=== PATIENT | male | born 1950 | race African-American/Black ===

== ENCOUNTER 2017-06-08 04:05 | Inpatient (IN) | payer OTHER ==
[~2017-06-08] VITALS: Ht 177.8 cm; Wt 100.0 kg
[~2017-06-08 04:05] MED LIST: ATORVASTATIN CA20 M1 PO; HYDROCHLOROTHIA25 M1 PO; METOPROLOL SUCC50 M2 PO; NORVASC5 M1 PO; OMEPRAZOLE20 M2 PO; PERCOCET 10-321 EACH PO
--- NOTE | 2017-06-08 09:45 | Admission Core Measures ---
Acute Coronary Syndrome (CM) ACS Core Measures Acute Coronary Syndrome Diagnosis No Congestive Heart Failure (NEW) CHF Core Measures Congestive Heart Failure Diagnosis No Cerebrovascular Accident (NEW) CVA Core Measures CVA/TIA Diagnosis No Venous Thromboembolism VTE Core Janak (View Protocol) VTE Risk Factors Surgery No Mechanical VTE Prophylaxis d/t N/A MechProphylax Ordered No VTE Pharm Prophylaxis d/t NA PharmProphylax ordered Problem List As ranked by this Provider includes Assessment & Plan 1. Primary osteoarthritis of right knee HOME MEDS Home Med List Amlodipine Besylate (Norvasc) 5 MG TABLET 1 TAB PO DAILY BP (Reported) Atorvastatin Calcium 20 MG TABLET 1 TAB PO DAILY CHOLESTEROL (Reported) Hydrochlorothiazide 25 MG TABLET 1 TAB PO DAILY BP (Reported) Metoprolol Succinate 50 MG TAB.ER.24H 1 TAB PO DAILY HEART/BP (Reported) Omeprazole 20 MG CAPSULE.DR 1 CAP PO DAILY GI (Reported) Oxycodone HCl/Acetaminophen (Percocet 10-325 MG Tablet) 10 MG-325 MG TABLET 1 TAB PO 4 TIMES/DAY PAIN (Reported)
--- NOTE | 2017-06-08 10:59 | Surg Short-stay <48hrs Dis Sum ---
Visit Information Visit Dates Admission Date: 06/08/17 Discharge Date: 06/10/17 Surgical Short Stay DC Summary Admission Diagnosis: Right knee pain related to right knee primary osteoarthritis Final Diagnosis: Same, status post right total knee replacement Procedure(s): Right total knee replacement Summary/Significant Findings: Patient was admitted to the hospital for an elective total joint replacement. Procedure was tolerated well and patient was transferred to a general surgical floor. Diet was advanced and tolerated. Physical therapy performed evaluation and treatment. At time of hospital discharge, vital signs were stable, neurovascular status was intact, and pain was controlled with the use of oral pain medications. Condition at Discharge: Stable Discharge Disposition: home health services Discharge instructions provided to patient/family: Yes Post discharge follow-up plan: Follow up with Dr. Osorio in 6 weeks from date of surgery. Please call his office to schedule/confirm this appointment.
--- NOTE | 2017-06-08 11:18 | Patient Discharge Instructions ---
Discharge Instructions General Discharge Information You were seen/treated for: Right knee pain secondary to osteoarthritis You had these procedures: Right total knee replacement Watch for these problems: Increasing pain despite the use of pain medication Increasing redness, warmth or swelling Drainage of any type from incision Inability to bear weight on operative leg Persistent nausea and vomiting Fever greater than 101.5 degrees Other wound care: Please keep wound clean and dry. No ointments or lotions of any type on or near incision. Your dressing will be changed by your nurse on the second day after your surgery. Daily dry dressing changes are recommended each day thereafter. You may shower 48hr after surgery. Do not soak your wound- no tub baths or swimming. Special Instructions: Aspirin: You are taking this medication to help prevent blood clot formation. Please take with food to protect your stomach lining. Take as directed. Constipation: Pain medication can cause constipation. It is recommended that you take Colace and miralax daily. You may discontinue this medication if you develop loose stool or diarrhea. If you wish to continue this medication, it is available over the counter. If you are unable to move your bowels or pass gas after several days, please contact your doctor. Diet Continue normal diet: Yes Activity Activity Limited to: Weight bear as tolerated Additional ACTIVITY Info: Use assistive devices as needed Acute Coronary Syndrome Inclusion Criteria At DC or during hospital stay patient has or had the following: ACS DIAGNOSIS No Discharge Core Measures Meds if any: Prescribed or Continued at Discharge Meds if any: NOT Prescribed or Continued at Discharge Congestive Heart Failure Inclusion Criteria At DC or during hospital stay patient has or had the following: CHF DIAGNOSIS No Discharge Core Measures Meds if any: Prescribed or Continued at Discharge Meds if any: NOT Prescribed or Continued at Discharge Cerebrovascular accident Inclusion Criteria At DC or during hospital stay patient has or had the following: CVA/TIA Diagnosis No Discharge Core Measures Meds if any: Prescribed or Continued at Discharge Meds if any: NOT Prescribed or Continued at Discharge Venous thromboembolism Inclusion Criteria VTE Diagnosis No VTE Type NONE VTE Confirmed by (Test) NONE Discharge Core Measures - Per Current guidelines, there needs to be overlap - treatment for the first 5 days of Warfarin therapy. - If discharged on Warfarin prior to 5 days of - overlap therapy, the patient will need to be - assessed for post discharge needs including - *Post discharge parental anticoagulation - *Warfarin and/or parental anticoagulation education - *Follow up date to check INR post discharge At least 5 days overlap therapy as Inpatient No Meds if any: Prescribed or Continued at Discharge Note: Overlap Therapy is Warfarin and Anticoagulant Meds if any: NOT Prescribed or Continued at Discharge
[2017-06-08] MEDS ORDERED: COLACE100 M1 PO (11:22)
[2017-06-08] MEDS ORDERED: ASPIRIN EC325 M2 PO (11:22)
[2017-06-08] MEDS ORDERED: MS CONTIN15 M3 PO (11:22)
[2017-06-08] MEDS ORDERED: DILAUDID2 M1 PO (11:22)
[2017-06-08] MEDS ORDERED: MIRALAX17 G1 PO (11:22)
--- NOTE | 2017-06-08 14:46 | Operative Report ---
Operative/Inv Procedure Report Surgery Date: 06/08/17 Name of Procedure: 1. Right total knee replacement 2. Left knee cortisone injection Pre-Operative Diagnosis: Primary bilateral knee DJD Post-Operative Diagnosis: Same Estimated Blood Loss: 50ml to 100ml Surgeon/Skin Peeling Machine Operator: Devon WAGNER,Edy Mcgarry Anesthesia: block Operative/Procedure Note Note: Description of Procedure: The patient was taken to the operating room and positively identified. After induction of spinal anesthesia and administration of appropriate pre-operative antibiotics, the patient was positioned supine on the operating room table and all bony prominences were well padded. The left knee was prepped sterilely and injected with a mixture of 2 mL of Depo- Medrol and 6 mL of Marcaine. A Band-Aid Was Placed over the Injection Site. Attention Was Then Turned to the Right Lower Extremity. A well-padded pneumatic tourniquet was placed on the right upper thigh. After performing a surgical timeout, the right lower extremity was prepped and draped in the usual sterile fashion. After exsanguination with Esmarch the tourniquet was inflated to 250mm of mercury. A standard medial parapatellar approach was made to the knee. This was carried down through skin and subcutaneous tissue to the level of the fascia. Meticulous hemostasis was maintained with Bovie electrocautery. The extensor mechanism and patellar retinaculum were opened sharply and the patella was everted. The infrapatellar fat was resected in order to improve exposure. Osteophytes were trimmed from the patella and femoral condyles and the patella was re-everted and tucked laterally. A medial release was performed and the cruciate ligaments were resected. The tibia was then subluxed anteriorly. Utilizing the appropriate extra-medullary guide, the proximal tibia was trimmed perpendicular to the long axis of the tibial shaft. Attention was then turned to the femur. After opening the medullary canal, the distal femoral cut was made in 6 degrees of valgus utilizing the appropriate intra-medullary guide. The extension gap was checked and found to be appropriate. The femur was then sized and the remainder of the femoral cuts were made with a size 6 4-in-1 femoral cutting guide. The flexion gap was checked and found to be symmetric and appropriate. The knee was then trialed with a size 6 femoral component, a size 6 tibial component and a size 11 mm polyethylene insert. The patella was trimmed to accept an A 38 patella. This yielded excellent range of motion, stability and patellar tracking. All trial components were removed and the knee was copiously irrigated with sterile saline. All components were cemented into place with Adilene Simplex cement. All the components were of the [employer] knee system of the above stated sizes. The knee was again irrigated after cementation. The extensor mechanism and patellar retinaculum were repaired using interrupted #1 vicryl suture. The skin was re-approximated with 2-0 vicryl and closed with merlene. A sterile dressing was applied, the tourniquet was deflated, the patient was awakened and taken to the recovery room in satisfactory condition.
--- NOTE | 2017-06-08 15:11 | PN- Orthopedic ---
Subjective Subjective: POC feeling ok, no cp/sob. no n/v. no oob yet. hungry, awating po intake. no pain Objective Vital Signs and I&Os see emr Physical Exam: gen- nad card- s1s2 pulm- ctab abd- soft nt ext- rle dressed in haydee, cdi, ice pack in place, onq pump in place, +dp bl, calves soft nt bl, alps on. Assessment/Plan Assessment/Plan A- POD0 sp R TKR, stable, awaiting oob and po intake. P- wbat, pt, oob asa 325mg bid, alps prn pain meds home meds reg diet as tolerated onq pump dc planning will dw attending Core Measures Venous Thromboembolism VTE Risk Factors Surgery No Mechanical VTE Prophylaxis d/t N/A MechProphylax Ordered No VTE Pharm Prophylaxis d/t NA PharmProphylax ordered
[2017-06-08 18:00] VITALS: BP 150/80
[2017-06-08 21:42] VITALS: BP 146/76
[2017-06-09 06:08] VITALS: BP 158/86
[2017-06-09 09:04] LABS: ABSOLUTE BASOPHIL COUNT 0 /CUMM (0.0-0.2); ABSOLUTE EOSINOPHIL COUNT 0 /CUMM (0.0-0.7); ABSOLUTE GRANULOCYTE CT 13.8 /CUMM (1.4-6.5); ABSOLUTE LYMPH COUNT 0.9 /CUMM (1.2-3.4); ABSOLUTE MONOCYTE COUNT 0.9 /CUMM (0.10-0.60); BASOPHIL % 0 % (0.0-2.0); EOSINOPHIL % 0.1 % (0-5); HEMATOCRIT 34.4 % (42-52); MEAN CORPUSCULAR HGB CONC 33.1 G/DL (33.0-37.0); MEAN CORPUSCULAR VOLUME 84.4 FL (80.0-94.0); MEAN PLATELET VOLUME 9.5 FL (7.4-10.4); PLATELET COUNT 214 /CUMM (130-400); RBC DISTRIBUTION WIDTH 13.8 % (11.5-14.5); RED BLOOD CELL CT 4.08 /CUMM (4.70-6.10); WHITE BLOOD CELL COUNT 15.6 /CUMM (4.8-10.8)
--- NOTE | 2017-06-09 09:24 | PN- Orthopedic ---
Subjective Subjective: "I want to go home today". Reports pain controlled. Tolerating diet. No nausea. Denies dizziness. No shortness of breath. No chest pains. Not yet out of bed with PT today. Voiding well. He states he has 7 stairs to accomplish at home. Objective Vital Signs and I&Os Vital Signs Date Time Temp Pulse Resp B/P B/P Pulse O2 O2 Flow FiO2 Mean Ox Delivery Rate 06/10 607 97.9 90 20 158/86 99 Room Air 06/08 214 97.9 78 20 146/76 97 Room Air 06/08 1940 Room Air Room Air 06/08 1800 97.9 79 16 150/80 98 Room Air Room Air Intake & Output 06/09 1600 06/09 0800 06/09 0000 06/08 1600 06/08 0800 06/08 0000 Intake Total 840 800 Output Total 590 400 Balance 250 400 Intake, IV 600 300 Intake, Oral 240 500 Output, Urine 590 400 Patient 221 lb 220 lb Weight Physical Exam: General - alert & oriented x 3. comfortable. no acute distress. Lungs - clear bilaterally. Cardiac - s1s2. slightly tachy 100s. Abdomen - soft. nontender. Extremities - right leg dressing c/d/i. on-q in place. calves soft and nontender b/l. athrombics in place. nvi. Current Medications: Current Medications Sig/Raza Start time Last Medication Dose Route Stop Time Status Admin Acetaminophen 650 MG Q4P PRN 06/08 1500 AC PO Acetaminophen 975 MG ONCE 06/08 0000 DC PO 06/08 2358 Amlodipine Besylate 5 MG DAILY 06/09 899 DC PO Amlodipine Besylate 5 MG DAILY 06/09 899 AC PO Aspirin 325 MG BID 06/08 2100 AC 06/08 PO 2122 Atorvastatin Calcium 20 MG DAILY 06/09 899 DC PO Atorvastatin Calcium 20 MG DAILY 06/09 899 AC PO Cefazolin Sodium 2 GM IQ8 06/08 1600 DC 06/09 N/A 1 UNIT IV 06/09 0029 0049 Cefazolin Sodium 2,000 MG ONCE 06/08 0000 DC IV 06/08 2358 Dextrose/Sodium 1,000 ML .[id number] 06/08 1500 AC 06/09 Chloride IV 0523 Docusate Sodium 100 MG BID 06/08 2100 AC 06/08 PO 2122 Hydrochlorothiazide 25 MG DAILY 06/09 0900 DC PO Hydrochlorothiazide 25 MG DAILY 06/09 0900 AC PO Hydromorphone HCl 4 MG Q4P PRN 06/08 1500 AC 06/08 PO 1716 Hydromorphone HCl 6 MG Q4P PRN 06/08 1500 AC 06/09 PO 0520 Metoprolol Succinate 50 MG DAILY 06/09 0900 DC PO Metoprolol Succinate 50 MG DAILY 06/09 0900 AC PO Morphine Sulfate 2 MG Q2P PRN 06/08 1500 AC IV Omeprazole 20 MG DAILY AC 06/09 0700 DC PO Omeprazole 20 MG DAILY AC 06/09 0700 AC 06/09 PO 0519 Ondansetron HCl 4 MG Q6P PRN 06/08 1500 AC IV Oxycodone HCl 10 MG ONCE 06/08 0000 DC PO 06/08 2359 Polyethylene Glycol 17 GM DAILY 06/09 0900 AC PO Promethazine HCl 12.5 MG Q6P PRN 06/08 1500 AC IV 06/15 0959 Ropivacaine 500 ML ONCE ONE 06/08 0845 DC ON-Q Ball 1 BAG INJ 06/10 0224 Results Last 48 Hours of Labs: Laboratory Tests 06/09 0800 Hematology CBC w Diff Pending WBC Pending RBC Pending Hgb Pending Hct Pending MCV Pending MCH Pending MCHC Pending RDW Pending Plt Count Pending MPV Pending Gran % Pending Lymphocytes % Pending Monocytes % Pending Eosinophils % Pending Basophils % Pending Absolute Granulocytes Pending Absolute Lymphocytes Pending Absolute Monocytes Pending Absolute Eosinophils Pending Absolute Basophils Pending Assessment/Plan Assessment/Plan This 67 year old male with hx htn, hld, gerd, is POD#1 s/p right total knee replacement tolerating diet. d/c iv fluids awaiting PT. needs to accomplish stairs prior to discharge home asa bid - dvt ppx dressing change and removal of on-q POD#2 bowel regime ordered home meds ordered, including beta mercedes f/u am labs d/c planning, ?today vs tomorrow will d/w Core Measures Venous Thromboembolism VTE Risk Factors Surgery No Mechanical VTE Prophylaxis d/t N/A MechProphylax Ordered No VTE Pharm Prophylaxis d/t NA PharmProphylax ordered
[2017-06-09 10:10] LABS: GRANULOCYTE % 88.7 % (42.2-75.2)
[2017-06-09] MEDS ORDERED: MS CONTIN15 M3 PO (12:22)
[2017-06-09 12:26] VITALS: BP 152/90
[2017-06-09 21:45] VITALS: BP 170/88
[2017-06-10 05:58] VITALS: BP 142/88
[2017-06-10 08:09] VITALS: BP 142/88
--- NOTE | 2017-06-10 08:35 | PN- Orthopedic ---
Subjective Subjective: No complaints presently. Pain controlled. Denies chest pain, shortness of breath and difficulty breathing. Denies nausea and vomitting. No difficulty voiding. Has been oob with PT, cleared stairs. Anticipating discharge to home with [facility] today. Objective Vital Signs and I&Os Vital Signs Date Time Temp Pulse Resp B/P B/P Pulse O2 O2 Flow FiO2 Mean Ox Delivery Rate 06/10 0809 87 142/88 06/10 0809 87 142/88 06/10 0558 98.4 87 20 142/88 91 Room Air 06/09 2145 98.4 73 20 170/88 98 Room Air 06/09 1226 98.1 88 20 152/90 97 Room Air 06/09 1040 158/86 06/09 1040 158/86 Intake & Output 06/10 1600 06/10 0800 06/10 0000 06/09 1600 06/09 0800 06/09 0000 Intake Total 5631 550 4500 800 Output Total 450 7030 491 7750 400 Balance -450 135 -120 -110 400 Intake, IV 10 600 300 Intake, Oral 1200 480 480 500 Number 0 Bowel Movements Output, Urine 450 8282 544 2501 400 Patient 221 lb Weight Physical Exam: General: Alert and oriented x3, no acute distress Cardiac: RRR, s1s2 Pulm: CTA bilaterally Abd: Non-tender, non-distended Extremities: Moves all extremities, distal sensation grossly intact. Skin warm and well perfused. Distal pulses palpable. Bilateral calves soft and non- tender. Surgical site: Right knee. Dressing changed. Skin edges well approximated. Kailey intact. No drainage. Clean dry dressing reapplied Assessment/Plan Assessment/Plan This is a 67 year old male, POD 2, s/p R TKR -Continue po pain regimen -Continue diet as tolerated -Activity: WBAT, OOB -DVT ppx: ASA 325 bid Anticipate dc to home today with [facility] Will discuss poc with Dr. Osorio Core Measures Venous Thromboembolism VTE Risk Factors Surgery No Mechanical VTE Prophylaxis d/t N/A MechProphylax Ordered No VTE Pharm Prophylaxis d/t NA PharmProphylax ordered
== END 2017-06-10 11:23 | disposition home health service (06) | DRG 470 ==
LOC: SDA 04:05 → ENRESERV 12:44 → ENTRNSPT 13:58 → EDTRNSPT 14:33 → EDTRNSPTSTS 14:33 → 2NB 14:47 → CMPTRNSPT 14:56 → ENPENDDIS 06-10 08:38 → ENTRNSPT 06-10 11:15 → EDTRNSPTSTS 06-10 11:19 → EDTRNSPT 06-10 11:19 → 2NB 06-10 11:23 → CMPTRNSPT 06-10 11:54
PROVIDERS: Physician Assistant Surgical
PROC: 0SRC0J9 Replacement of Right Knee Joint with Synthetic Substitute, Cemented, Open Approach (ICD-10-PCS; principal; 2017-06-08)
PROC: 3E0T3BZ Introduction of Anesthetic Agent into Peripheral Nerves and Plexi, Percutaneous Approach (ICD-10-PCS; principal; 2017-06-08)
DX: M17.11 Unilateral primary osteoarthritis, right knee (principal); E66.9 Obesity, unspecified; E78.5 Hyperlipidemia, unspecified; I10 Essential (primary) hypertension; Z79.891 Long term (current) use of opiate analgesic; K21.9 Gastro-esophageal reflux disease without esophagitis; Z68.31 Body mass index [BMI] 31.0-31.9, adult; F17.200 Nicotine dependence, unspecified, uncomplicated
CPT/HCPCS: 2NBSP; 36415; 36592; 82436; 97110-GO; 97116-GO; 97161-GP; 97530-GO; C1713; J0690; J1030; J1100; J2405; J2550; J2795; J7042